=== PATIENT | male | born 1955 | race Caucasian/White ===

== ENCOUNTER → 2018-04-13 08:30 | Outpatient (CLI) | payer OTHER, SELFPAY ==
[2018-04-13 15:38] LABS: ALB/GLOB Ratio 0.9 RATIO (0.9-2.4); AST(SGOT) 22 U/L (15-37); Alanine Aminotransfer ALT/SGPT 28 U/L (16-61); Albumin, Serum 3.7 g/dL (3.2-5.0); Alkaline Phosphatase 79 U/L (45-117); Anion Gap 3 (5-15); BUN 11 mg/dL (7-18); BUN/Creat Ratio 9.9 RATIO (10-20); Calcium,Total 9.2 mg/dL (8.5-10.1); Chloride 105 mmol/L (98-107); Cholesterol 180 mg/dL (200); Creatinine, Serum 1.11 mg/dL (0.70-1.30); EST Glomerular Filtration Rate 71 mL/min (>60); Est Glom Filt Rate - Afr Amer 86 mL/min (>60); Globulin 3.9 g/dL (2.2-4.2); Glucose 91 mg/dL (74-106); High Density Lipoprotein 52 mg/dL; PSA,Total - Annual Screen 3.04 ng/mL (0.00-4.00); Potassium 4.5 mmol/L (3.5-5.1); Protein, Total 7.6 g/dL (6.4-8.2); Sodium Level 139 mmol/L (136-145); Triglycerides 78 mg/dL; Very Low Density Lipoprotein 16 mg/dL (5-40)
[2018-04-13 16:22] LABS: HIV - WCH Non-Reactive (Nonreactive)
[2018-04-13 16:28] LABS: Absolute Lymphocyte Count 1.31 X10^3/ul (0.83-4.51); Absolute Neutrophil Count 4.3 X10^3/uL (2.0-7.7); Basophil# 0.06 X10^3/uL; Basophil% 0.9 % (0-1); Eosinophil# 0.43 X10^3/uL; Eosinophils% 6.1 % (0-5); Hematocrit 49.3 % (40-54); Hemoglobin 16.5 g/dl (13.0-16.5); Lymphocyte # 1.31 X10^3/ul (4.0); Lymphocyte % 18.7 % (19-41); Mean Corp Hgb Conc 33.5 g/gl (32-36); Mean Corpuscular Hgb 31.1 pg (27.0-32.0); Mean Corpuscular Volume 92.8 fL (80-94); Mean Platelet Vol. 9.3 fl (6.2-12.0); Monocyte# 0.94 X10^3/uL; Monocyte% 13.4 % (0-10); Neutrophil # 4.26 X10^3/uL (2.7-7.7); Neutrophil % 60.9 % (47-70); Platelet Count 269 K/mm3 (150-450); RBC Distribution Width CV 12.6 % (11.6-14.6); Red Blood Count 5.31 M/mm3 (4.6-6.2)
[2018-04-13 16:45] LABS: POSITIVE COUNT NO; POSITIVE DIFFERENTIAL NO; POSITIVE MORPHOLOGY NO
[2018-04-20 00:18] LABS: Rapid Plasmin Reagin (RPR) NONREACTIVE (NONREACTIVE)
== END ==
PROVIDERS: Family Provider Family Medicine; PCP Family Medicine; Visit Provider Family Medicine
DX: R03.0 Elevated blood-pressure reading, without diagnosis of hypertension (principal); Z12.5 Encounter for screening for malignant neoplasm of prostate; Z13.220 Encounter for screening for lipoid disorders
CPT/HCPCS: 36415; 80053; 80061; 84153; 85025; 86592; 86703; G0103

== ENCOUNTER → 2019-04-05 | Outpatient (CLI) | payer OTHER, SELFPAY ==
[2019-04-05 09:53] LABS: Absolute Neutrophil Count 3.8 X10^3/uL (2.0-7.7); Basophil# 0.06 X10^3/uL; Basophil% 0.9 % (0-1); Eosinophil# 0.27 X10^3/uL; Eosinophils% 4.2 % (0-5); Hematocrit 50.5 % (40-54); Hemoglobin 16.9 g/dL (13.0-16.5); Lymphocyte % 21.9 % (19-41); Mean Corp Hgb Conc 33.5 g/dL (32-36); Mean Corpuscular Volume 92.5 fL (80-94); Monocyte# 0.84 X10^3/uL; Monocyte% 13.1 % (0-10); NRBC Flagged by Analyzer 0 % (0-5); Neutrophil # 3.81 X10^3/uL (2.7-7.7); Neutrophil % 59.6 % (47-70); Platelet Count 276 K/mm3 (150-450); RBC Distribution Width SD 41.1 fl (35.1-43.9); Red Blood Count 5.46 M/mm3 (4.6-6.2); White Blood Count 6.4 K/mm3 (4.4-11.0)
[2019-04-05 10:27] LABS: AST(SGOT) 22 U/L (15-37); Alanine Aminotransfer ALT/SGPT 28 U/L (16-61); Albumin, Serum 3.6 g/dL (3.2-5.0); Alkaline Phosphatase 83 U/L (45-117); Anion Gap 7 (5-15); BUN 15 mg/dL (7-18); Calcium,Total 9.1 mg/dL (8.5-10.1); Chloride 104 mmol/L (98-107); Cholesterol 190 mg/dL (200); Creatinine, Serum 1.15 mg/dL (0.70-1.30); EST Glomerular Filtration Rate 68 mL/min (>60); Est Glom Filt Rate - Afr Amer 82 mL/min (>60); Globulin 3.7 g/dL (2.2-4.2); Glucose 79 mg/dL (74-106); High Density Lipoprotein 52 mg/dL; Potassium 4.1 mmol/L (3.5-5.1); Protein, Total 7.3 g/dL (6.4-8.2); Sodium Level 141 mmol/L (136-145); Triglycerides 91 mg/dL; Very Low Density Lipoprotein 18 mg/dL (5-40)
[2019-04-12 01:32] LABS: Rapid Plasmin Reagin (RPR) NONREACTIVE (NONREACTIVE)
== END | disposition home or self-care (01) ==
LOC: MTLAB 07:05
PROVIDERS: Family Provider Family Medicine; PCP Family Medicine; Referring Provider Family Medicine; Visit Provider Family Medicine
DX: R03.0 Elevated blood-pressure reading, without diagnosis of hypertension (principal); Z13.220 Encounter for screening for lipoid disorders
CPT/HCPCS: 36415; 80053; 80061; 85025; 86592

== ENCOUNTER → 2019-04-22 | Outpatient (CLI) | payer OTHER, SELFPAY ==
[2019-04-24 20:18] LABS: QNTFERON TB Mitogen Value > 10.00 IU/mL (.); QNTFERON TB Nil Value 0.03 IU/mL (.); QNTFERON TB1+ Ag Value 0.09 IU/mL (.)
[2019-04-25 09:38] LABS: QNTIFERON TB Positive Criteria Negative (Negative)
== END | disposition home or self-care (01) ==
LOC: MTLAB 10:13
PROVIDERS: Family Provider Family Medicine; PCP Family Medicine; Referring Provider Family Medicine; Visit Provider Family Medicine
DX: Z11.1 Encounter for screening for respiratory tuberculosis (principal)
CPT/HCPCS: 36415; 86480

== ENCOUNTER → 2020-05-01 | Outpatient (CLI) | payer MEDICARE, OTHER, SELFPAY ==
[2020-05-01 10:13] LABS: Anion Gap 7 (5-15); BUN 12 mg/dL (7-18); BUN/Creat Ratio 12.5 RATIO (10-20); Calcium,Total 9.2 mg/dL (8.5-10.1); Chloride 104 mmol/L (98-107); Cholesterol 191 mg/dL (200); Creatinine, Serum 0.96 mg/dL (0.70-1.30); EST Glomerular Filtration Rate 83 mL/min (>60); Est Glom Filt Rate - Afr Amer 100 mL/min (>60); Glucose 79 mg/dL (74-106); High Density Lipoprotein 49 mg/dL; PSA,Total - Annual Screen 3.22 ng/mL (0.00-4.00); Sodium Level 140 mmol/L (136-145); Triglycerides 91 mg/dL; Very Low Density Lipoprotein 18 mg/dL (5-40)
== END | disposition home or self-care (01) ==
LOC: MTLAB 07:04
PROVIDERS: PCP Family Medicine; Referring Provider Family Medicine; Visit Provider Family Medicine
DX: R03.0 Elevated blood-pressure reading, without diagnosis of hypertension (principal); Z12.5 Encounter for screening for malignant neoplasm of prostate
CPT/HCPCS: 36415; 80048; 80061; 84153; G0103

== ENCOUNTER → 2020-08-19 | Outpatient (CLI) | payer MEDICARE, OTHER, SELFPAY | END | disposition home or self-care (01) | LOC: LABSPEC 08:50 | PROVIDERS: PCP Family Medicine; Referring Provider Family Medicine; Visit Provider Family Medicine | DX: R30.0 Dysuria (principal) | CPT/HCPCS: 87086 ==

== ENCOUNTER → 2021-05-07 06:52 | Outpatient (CLI) | payer MEDICARE, OTHER, SELFPAY ==
[2021-05-07 10:34] LABS: Anion Gap 4 (5-15); BUN 13 mg/dL (7-18); BUN/Creat Ratio 13.4 RATIO (10-20); Calcium,Total 9.2 mg/dL (8.5-10.1); Chloride 108 mmol/L (98-107); Cholesterol 194 mg/dL (200); Creatinine, Serum 0.97 mg/dL (0.70-1.30); EST Glomerular Filtration Rate 82 mL/min (>60); Est Glom Filt Rate - Afr Amer 100 mL/min (>60); Glucose 86 mg/dL (74-106); High Density Lipoprotein 49 mg/dL; PSA,Total- Diagnostic 6.94 ng/mL (0.0-4.0); Sodium Level 140 mmol/L (136-145); Triglycerides 81 mg/dL; Very Low Density Lipoprotein 16 mg/dL (5-40)
== END ==
PROVIDERS: PCP Family Medicine; Referring Provider Family Medicine; Visit Provider Family Medicine
DX: N40.0 Benign prostatic hyperplasia without lower urinary tract symptoms (principal); Z13.220 Encounter for screening for lipoid disorders
CPT/HCPCS: 36415; 80048; 80061; 84153

== ENCOUNTER → 2021-06-16 14:20 | Outpatient (CLI) | payer MEDICARE, OTHER, SELFPAY ==
--- NOTE | 2021-06-16 14:24 | CT_ITS ---
STUDY: CT Chest W/O Contrast Injection 06/16/2021 4:53 PM REASON FOR EXAM: Male, 66 years old. PULMONARY NODULE Individualized dose optimization techniques were used for this CT. TECHNIQUE: Transaxial imaging was performed withoutIV contrast material. COMPARISON: None. FINDINGS: There are degenerative changes of the shoulders. There is no pneumothorax. There is a 2.5 mm and 2.2 mm right mid lung/ lower lobe nodule. SE: 4 IM: 71. There are calcifications of the coronary arteries. Normal mediastinum. Normal hilar regions. Normal pulmonary arteries. There is atherosclerotic calcification of the aortic arch with tortuosity and elongation of the aortic arch and descending thoracic aorta. There are multi-level degenerative changes of the thoracic spine. There are no acute findings of the upper abdomen. CT/Chest without Contrast IMPRESSION: 2 right lower lobe nodules. ACR Lung CT Screening Reporting T Data System (Lung-RADS) score: 2 - Benign Appearance or Behavior. Recommend continued annual screening with low-dose CT (LDCT) in 12 months. Electronically Signed: Nilay Landry MD at 16:56 EDT , Service support ,
== END ==
PROVIDERS: PCP Family Medicine; Referring Provider Family Medicine; Visit Provider Family Medicine
DX: R91.8 Other nonspecific abnormal finding of lung field (principal)
CPT/HCPCS: 71250

== ENCOUNTER → 2021-08-27 07:00 | Outpatient (CLI) | payer MEDICARE, OTHER, SELFPAY ==
[2021-08-27 10:30] LABS: Cholesterol 170 mg/dL (200); High Density Lipoprotein 51 mg/dL; Triglycerides 66 mg/dL; Very Low Density Lipoprotein 13 mg/dL (5-40)
[2021-08-27 10:33] LABS: Vitamin D,25 Hydroxy 72.8 ng/mL
[2021-08-28 12:36] LABS: PSA, Free 0.92 ng/mL; PSA, Total Ultrasensitive 6.1 ng/mL (0.0-4.0)
[2021-08-28 12:37] LABS: PSA, Free % 15.1 % (.)
== END ==
PROVIDERS: PCP Family Medicine; Referring Provider Family Medicine; Visit Provider Family Medicine
DX: E55.9 Vitamin D deficiency, unspecified (principal); I71.2 Thoracic aortic aneurysm, without rupture; R97.20 Elevated prostate specific antigen [PSA]
CPT/HCPCS: 36415; 80061; 82306; 84153; 84154

== ENCOUNTER → 2022-05-12 | Outpatient (CLI) | payer MEDICARE, OTHER, SELFPAY ==
[2022-05-12 10:42] LABS: Vitamin D,25 Hydroxy 91.8 ng/mL
[2022-05-12 10:47] LABS: AST(SGOT) 17 U/L (15-37); Alanine Aminotransfer ALT/SGPT 26 U/L (16-61); Albumin, Serum 3.5 g/dL (3.2-5.0); Alkaline Phosphatase 78 U/L (45-117); Anion Gap 5 (5-15); BUN 12 mg/dL (7-18); BUN/Creat Ratio 11.8 RATIO (10-20); Chloride 104 mmol/L (98-107); Cholesterol 142 mg/dL (200); Creatinine, Serum 1.02 mg/dL (0.70-1.30); EST Glomerular Filtration Rate 77 mL/min (>60); Est Glom Filt Rate - Afr Amer 93 mL/min (>60); Globulin 3.6 g/dL (2.2-4.2); Glucose 78 mg/dL (74-106); High Density Lipoprotein 47 mg/dL; PSA,Total- Diagnostic 5.62 ng/mL (0.0-4.0); Potassium 3.7 mmol/L (3.5-5.1); Protein, Total 7.1 g/dL (6.4-8.2); Sodium Level 139 mmol/L (136-145); Triglycerides 60 mg/dL; Very Low Density Lipoprotein 12 mg/dL (5-40)
== END | disposition home or self-care (01) ==
PROVIDERS: PCP Family Medicine; Referring Provider Family Medicine; Visit Provider Family Medicine
DX: E78.5 Hyperlipidemia, unspecified (principal); R97.20 Elevated prostate specific antigen [PSA]; E55.9 Vitamin D deficiency, unspecified
CPT/HCPCS: 36415; 80053; 80061; 82306; 84153

== ENCOUNTER → 2022-06-02 | Outpatient (CLI) | payer MEDICARE, OTHER, SELFPAY ==
--- NOTE | 2022-06-02 | IMM_PTH ---
PATIENT: JO MANN LOC: [facility] U#:[id number] AGE/SX: 67/M ROOM: RE06/02/[address]: Dr. Kevin Dean MD : 1955 BED: DIS: 06/02/2022 SPEC #: [id number] RECD: 06/06/22 12:50 STATUS: MINA REChloe #: [id number] [place]: 06/02/22 00:[address]: Kevni Dean DEPT: IMMUNOHISTOCHEMISTRY RECD BY: Yasmine Collier Tissues: Skin of chest Procedures: CK5-6 (add) CK7 (add) 34BE12 (add) Pankeratin (initial) MELAN-A (add) P40 (add) S-100 (add) PHYSICIAN & INSTITUTION [facility] [id number] SPECIMEN INFORMATION: Tissue Source: Nevus right side of chest Clinical Info: Atypical nevus Specimen Number: [id number] CPT code: 53834, 98214 x6 METHODOLOGY: Deparaffinized sections of prefer/formalin-fixed tissue or PAP/DQ stained slides are incubated with monoclonal/polyclonal antibodies/oligonucleotide probes. Localization is made via biotin free immunoperoxidase method. Appropriate controls are performed and reacted as expected. Results on target cell population are indicated in the following table: RESULTS: ANTIBODY / CLONE RESULT AE1-3 (AE1/AE3/PCK26) positive CK7 (OV-TL12/30) positive 34BE12 (34BE12) positive Melan A (A103) negative S-100 (4C4.9) negative CK5-6 (D5 & 1684) positive P40 (BC28) positive These tests were developed and their performance characteristics determined by [facility]. They may not have been cleared or approved by the [place]. Food and Drug Administration. The FDA has determined that such clearance or approval is not necessary. The above immunohistochemical/dualISH markers are ordered and reviewed by the Pathologist. INTERPRETATION: Nevus of right side of chest, punch biopsy: Consistent with basal cell carcinoma. AM:sharron 06/07/2022
--- NOTE | 2022-06-02 | LES_PTH ---
PATIENT: JO MANN LOC: [facility] U#:[id number] AGE/SX: 67/M ROOM: RE06/02/[address]: Dr. Kevin Dean MD : 1955 BED: DIS: 06/02/2022 SPEC #: [id number] RECD: 06/02/22 14:50 STATUS: MINA ANDRADE #: [id number] [place]: 06/02/22 00:[address]: Kevin Dean DEPT: SURGICAL PATHOLOGY RECD BY: Lexa Abel Tissues: Skin of chest Procedures: Surgery Specimen Level IV HEADER OPERATION: Chest excision PRE-OP DIAGNOSIS: Atypical nevus TISSUE SUBMITTED: Nevus right side of chest MICROSCOPIC DIAGNOSIS Nevus of right side of chest, punch biopsy: Pigmented basal cell carcinoma. See comment. AM:sharron 06/06/2022 COMMENT Immunohistochemistry ([id number]) supports the above diagnosis. Case has been reviewed in consultation with Dr. Casiano who concurs with the above diagnosis. IDC:VALERIE MICROSCOPIC DESCRIPTION Slides are reviewed. GROSS DESCRIPTION Received in fixative is one container labeled with the patient's name and designated chest. The specimen consists of a punch biopsy of john-brown skin measuring 0.4 cm in diameter and 0.5 cm in length. The specimen is totally submitted in one cassette. / VALERIE:sharron 06/03/2022 TC:0 CPT: 15851
== END | disposition home or self-care (01) ==
LOC: LABSPEC 15:08
PROVIDERS: PCP Family Medicine; Visit Provider Family Medicine
DX: C44.519 Basal cell carcinoma of skin of other part of trunk (principal)
CPT/HCPCS: 88305; 88341; 88342

== ENCOUNTER → 2022-07-27 | Outpatient (CLI) | payer MEDICARE, OTHER, SELFPAY ==
--- NOTE | 2022-07-27 07:58 | AAAS_ITS ---
Reason For Study: AAA SCREENING Aorta Measurements Aorta Doppler Measurements Proximal aorta measures2.00 x 2.03cm. in cross- Peak systolic flow velocities within the proximal sectional axis. aorta measure 77.4 cm/sec. Proximal aorta measures2.06cm. in longitudinal Peak systolic flow velocities within the mid aorta axis. measure 64.2 cm/sec. Mid aorta measures2.09 x 2.28cm. in cross- Peak systolic flow velocities within the distal sectional axis. aorta measure 111.3 cm/sec. Mid aorta measures2.2cm. in longitudinal axis. Distal aorta measures1.98 x 1.96cm. in cross- sectional axis. Distal aorta measures1.99cm. in longitudinal axis. Left Iliac Artery Left iliac artery measures 1.22 x 1.37 cm. in the cross-sectional axis. Left iliac artery measures 1.22 cm. in the longitudinal axis. Peak systolic velocity in the left iliac artery measures 124.8 cm/sec. Right Iliac Artery Right iliac artery measures 1.19 x 1.05 cm. in the cross-sectional axis. Right iliac artery measures 1.2 cm. in the longitudinal axis. Peak systolic velocity in the right iliac artery measures 94.1 cm/sec. Procedure Aorta IVC Iliac vasculature or bypass grafts [id number]. Exam performed in department. VL/AAA Screening Interpretation Summary The dimensions of the intra-abdominal aorta are normal, without evidence of ane urysmal dilatation. The iliac arteries are also normal in caliber bilaterally. The intra-abdominal aorta and iliac arteries appear patent, demonstrating normal, pulsatile arterial flow and sofia l peak systolic velocities. Ordering Physician: Kevin Dean Referring Physician: Kevin Dean Performed By: Viviana Friedman, RDCS, RVT
== END | disposition home or self-care (01) ==
LOC: US 07:56
PROVIDERS: PCP Family Medicine; Visit Provider Family Medicine
DX: I71.20 Thoracic aortic aneurysm, without rupture, unspecified (principal)
CPT/HCPCS: 76706

== ENCOUNTER → 2023-06-10 | Outpatient (CLI) | payer MEDICARE, OTHER, SELFPAY ==
--- NOTE | 2023-06-10 08:55 | CT_ITS ---
INDICATION: lung nodule EXAMINATION: CT CHEST WITHOUT CONTRAST - CT Chest W/O Contrast Injection TECHNIQUE: Helically acquired images were obtained of the chest. A radiation dose optimization technique was used for this scan. Sagittal coronal reformatted images are performed. IV Contrast dosage and agent: None. COMPARISON: June 16, 2021 FINDINGS: LUNGS, PLEURA AND LARGE AIRWAYS: Within the right middle lobe there is a pleural-based small nodule measuring 6.7 mm. There is a 2 mm right middle lobe nodule. There is a lingular nodular density measuring 4.4 mm stable since prior study. No pleural effusion or thickening. No pneumothorax. THYROID: No thyroid lesions. HEART AND PERICARDIUM: There is minimal visualized coronary calcification. No pericardial effusion. CORONARY ARTERIES: Coronary artery calcification is seen. VESSELS: Thoracic aorta is not dilated. MEDIASTINUM AND YOUNG: There are several nonspecific subcentimeter mediastinal lymph nodes stable since prior study. Esophagus is unremarkable. No hiatal hernia. UPPER ABDOMEN: No acute pathology. BONES: There is degenerative change of the thoracic spine. CT/Chest without Contrast IMPRESSION: Stable chest. Nodules as detailed above. Given the stability over time on the these are thought to represent benign possible postinflammatory nodules. Could consider follow-up study in 12 months to ensure overall stability return to annual screening. Trace coronary calcification. Electronically Signed: Fernanda Saenz MD at 4:27 EDT ,
== END | disposition home or self-care (01) ==
LOC: CT 08:53
PROVIDERS: PCP Family Medicine; Referring Provider Family Medicine; Visit Provider Family Medicine
DX: R91.8 Other nonspecific abnormal finding of lung field (principal)
CPT/HCPCS: 71250

== ENCOUNTER → 2024-06-19 | Outpatient (CLI) | payer MEDICARE, OTHER, SELFPAY ==
--- NOTE | 2024-06-19 15:53 | CT_ITS ---
STUDY: CT CHEST WITHOUT CONTRAST REASON FOR EXAM: Male, 69 years old. Pulmonary nodules. 1 yr f/u from previous RADIATION DOSAGE (If Supplied By Facility): CTDIvol = ( 16.33 ) mGy, DLP = ( 673.27 ) mGycm TECHNIQUE: Transaxial imaging was performed without the administration of intravenous contrast material. Multiplanar coronal and sagittal images were reformatted. Individualized dose optimization techniques were used for this CT. COMPARISON: Comparison is made with prior study dated June 10, 2023. FINDINGS: CHEST There is a 6 mm pleural-based nodule in the anterior aspect of the right middle lobe as seen on axial image #98. This is unchanged. Stable 4 mm lingular nodule. Stable right apical scarring. There is no demonstrated pleural abnormality. There are calcifications of the coronary arteries. There are multiple small lymph nodes within the mediastinum, which are normal in size and morphology most compatible with reactive lymph hyperplasia. Normal hilar regions. Normal unenhanced pulmonary arteries. Normal aorta arch and descending thoracic aorta. There are degenerative changes of the thoracic spine. There is no demonstrated abnormality of the visualized upper abdomen. CT/Chest without Contrast IMPRESSION: Stable examination. Twelve-month follow-up recommended. Electronically Signed: Matthew Storey MD at 9:40 EDT ,
== END | disposition home or self-care (01) ==
LOC: CT 15:52
PROVIDERS: PCP Family Medicine; Referring Provider Family Medicine; Visit Provider Family Medicine
DX: R91.8 Other nonspecific abnormal finding of lung field (principal)
CPT/HCPCS: 71250

== ENCOUNTER → 2024-06-21 | Outpatient (CLI) | payer MEDICARE, OTHER, SELFPAY ==
[2024-06-21 10:41] LABS: Vitamin D,25 Hydroxy 62.2 ng/mL
[2024-06-21 10:43] LABS: AST(SGOT) 20 U/L (15-37); Alanine Aminotransfer ALT/SGPT 21 U/L (16-61); Albumin, Serum 3.5 g/dL (3.2-5.0); Alkaline Phosphatase 80 U/L (45-117); Anion Gap 5 (5-15); BUN 9 mg/dL (7-18); BUN/Creat Ratio 8.9 RATIO (10-20); Calcium,Total 9.4 mg/dL (8.5-10.1); Chloride 106 mmol/L (98-107); Cholesterol 173 mg/dL (200); Creatinine, Serum 1.01 mg/dL (0.70-1.30); EST Glomerular Filtration Rate 78 mL/min (>60); Est Glom Filt Rate - Afr Amer 94 mL/min (>60); Globulin 3.6 g/dL (2.2-4.2); Glucose 93 mg/dL (74-106); High Density Lipoprotein 51 mg/dL; PSA,Total - Annual Screen 5.67 ng/mL (0.00-4.00); Potassium 3.9 mmol/L (3.5-5.1); Protein, Total 7.1 g/dL (6.4-8.2); Sodium Level 140 mmol/L (136-145); Triglycerides 83 mg/dL; Very Low Density Lipoprotein 17 mg/dL (5-40)
== END | disposition home or self-care (01) ==
LOC: MTLAB 07:08
PROVIDERS: PCP Family Medicine; Referring Provider Family Medicine; Visit Provider Family Medicine
DX: R97.20 Elevated prostate specific antigen [PSA] (principal); E55.9 Vitamin D deficiency, unspecified; E78.5 Hyperlipidemia, unspecified
CPT/HCPCS: 36415; 80053; 80061; 82306; 84153; G0103

== ENCOUNTER → 2025-06-24 | Outpatient (CLI) | payer MEDICARE, OTHER, SELFPAY ==
[2025-06-24 11:15] LABS: AST(SGOT) 22 U/L (<=37); Alanine Aminotransfer ALT/SGPT 14 U/L (<=46); Albumin, Serum 4.1 g/dL (3.4-4.8); Alkaline Phosphatase 79 U/L (40-129); Anion Gap 11 (5-15); BUN 10 mg/dL (4-19); BUN/Creat Ratio 10.0 RATIO (10-20); Calcium,Total 9.8 mg/dL (7.6-11.0); Carbon Dioxide 26.0 mmol/L (21.0-32.0); Chloride 105 mmol/L (98-108); Cholesterol 169 mg/dL (<=200); Globulin 3.0 g/dL (2.2-4.2); Glucose 98 mg/dL (70-99); Low Density Lipoprotein Calc. 104 mg/dL; Potassium 4.2 mmol/L (3.3-5.1); Triglycerides 76 mg/dL; Very Low Density Lipoprotein 15 mg/dL (5-40); cholesterol:hdl ratio screen 3.38
[2025-06-24 11:33] LABS: PSA,Total - Annual Screen 6.03 ng/mL (0.02-4.00); Vitamin D,25 Hydroxy 54.4 ng/mL (30-100)
== END | disposition home or self-care (01) ==
LOC: MTLAB 07:12
PROVIDERS: PCP Family Medicine; Referring Provider Family Medicine; Visit Provider Family Medicine
DX: Z00.00 Encounter for general adult medical examination without abnormal findings (principal); E55.9 Vitamin D deficiency, unspecified; E78.5 Hyperlipidemia, unspecified; Z12.5 Encounter for screening for malignant neoplasm of prostate
CPT/HCPCS: 36415; 80053; 80061; 82306; 84153; G0103